=== PATIENT | male | born 1985 | race African-American/Black ===

== ENCOUNTER 2021-07-11 20:54 | Emergency (ER) | payer SELFPAY ==
[~2021-07-11] VITALS: Ht 154.9 cm; Wt 80.0 kg
--- NOTE | 2021-07-11 21:32 | PHYS DOC ---
Past Medical History Past Surgical History: No Surgical History Smoking Status: Current Some Day Smoker Alcohol Use: Occasionally General Adult EDM: Chief Complaint: COUGH HPI: HPI: Patient is a 36 year old male with no significant medical history who presents the ED today to be evaluated for cough, nasal congestion and nosebleeding. Patient is Faroese-speaking and interpretation is provided by the girlfriend. Girlfriend states 3 days ago they broke up. Patient started drinking, smoking and being outside in the cold for long hours. He coughed yesterday and had a nosebleeding episode that lasted less than 2 minutes, no nosebleeding today. Girlfriend states patient has history of nosebleeds when he coughs hard or sneezes. Review of Systems: Review of Systems: Constitutional: Denies fever or chills. [] Eyes: Denies change in visual acuity. [] HENT: Reports nosebleed, nasal congestion denies sore throat. [] Respiratory: Reports cough, denies shortness of breath. [] Cardiovascular: Denies chest pain or edema. [] GI: Denies abdominal pain, nausea, vomiting, bloody stools or diarrhea. [] : Denies dysuria. [] Musculoskeletal: Denies back pain or joint pain. [] Integument: Denies rash. [] Neurologic: Denies headache, focal weakness or sensory changes. [] Psychiatric: Denies depression or anxiety. [] Heart Score: C/O Chest Pain: N/A Risk Factors: Risk Factors: DM, Current or recent (<one month) smoker, HTN, HLP, family history of CAD, obesity. Risk Scores: Score 0 - 3: 2.5% MACE over next 6 weeks - Discharge Home Score 4 - 6: 20.3% MACE over next 6 weeks - Admit for Clinical Observation Score 7 - 10: 72.7% MACE over next 6 weeks - Early Invasive Strategies Allergies: Allergies: Allergies Coded Allergies Type Severity Reaction Last Updated Verified No Known Drug Allergies 07/11/21 No Physical Exam: PE: Constitutional: Well developed, well nourished, no acute distress, non-toxic appearance. [] HENT: Normocephalic, atraumatic, bilateral external ears normal, oropharynx moist, no oral exudates, no nosebleeding noted. Eyes: PERRLA, EOMI, conjunctiva normal, no discharge. [] Neck: Normal range of motion, no tenderness, supple, no stridor. [] Cardiovascular:Heart rate regular rhythm, no murmur [] Lungs & Thorax: Bilateral breath sounds clear to auscultation [] Abdomen: Bowel sounds normal, soft, no tenderness, no masses, no pulsatile masses. [] Skin: Warm, dry, no erythema, no rash. [] Back: No tenderness, no CVA tenderness. [] Extremities: No tenderness, no cyanosis, no clubbing, ROM intact, no edema. [] Neurologic: Alert and oriented X 3, normal motor function, normal sensory function, no focal deficits noted. [] Psychologic: Affect normal, judgement normal, mood normal. [] Current Patient Data: Vital Signs: Vital Signs Date Time Temp Pulse Resp B/P (MAP) Pulse Ox O2 Delivery O2 Flow Rate FiO2 07/11/21 21:21 98.3 75 16 117/68 (84) 99 Room Air 98.3 EKG: EKG: [] Radiology/Procedures: Radiology/Procedures: [] Course & Med Decision Making: Course & Med Decision Making Pertinent Labs and Imaging studies reviewed. (See chart for details) This is a 36-year-old male patient presenting to the ED today complaining of cough, nasal congestion, and nose bleeding. Symptoms began 3 days ago. Patient has no nosebleeding in the ED. Patient has completely normal vitals including O2 sats of 99% on room air. Chest x-ray interpreted by radiologist is negative for any acute findings. Negative rapid Covid test. He was discharged home. He was instructed to follow-up with his own PCP. We discussed methods of stopping nosebleeds. Recommended Neosporin in the nasal cavities twice a day for 7 days. Advised this patient to consider smoking cessation and consider getting help for alcohol use if he feels he needs help. Dragon Disclaimer: [employer] Disclaimer: This electronic medical record was generated, in whole or in part, using a voice recognition dictation system. Departure Departure Impression: Primary Impression: Cough Additional Impressions: URI (upper respiratory infection) Qualified Codes: J06.9 - Acute upper respiratory infection, unspecified Epistaxis Smoking addiction Disposition: HOME / SELF CARE / HOMELESS Condition: STABLE Patient Instructions: Cough, Adult, [id number], Nosebleed, Smoking Cessation, Tips For Success, Upper Respiratory Infection, Child Additional Instructions: You were evaluated in the emergency room, your chest x-ray is negative for any acute findings, your rapid Covid test is negative. You likely have an upper respiratory viral infection. Consider smoking cessation, you can apply Neosporin to your nose twice a day for 7 days. Please follow-up with your doctor in 1 week. Consider getting help for alcohol use if you feel this is a problem. [employer] is available for this Scripts Benzonatate (BENZONATATE) 100 Mg Capsule 1 CAP PO TID, #30 CAP Prov: KEL GUILLEN APRN 07/11/21 KEL GUILLEN APRN Jul 11, 2021 21:32
--- NOTE | 2021-07-11 23:20 | RAD ---
Study: XR CHEST 1V Indication: Cough. Comparison: None. Findings: Incomplete inspiratory excursion with resultant mild bronchovascular crowding. The cardiomediastinal silhouette and luis are within normal limits. No confluent infiltrate, pleural effusion or pneumothor ax. Impression: No acute radiographic abnormality of the chest. Electronically signed by: JACK CLEMENS MD (07/11/2021 11:18 PM) [facility]
[2021-07-11] MEDS ORDERED: BENZ-8 PO (23:52)
[2021-07-12 00:09] VITALS: BP 108/66
== END 2021-07-12 00:13 | disposition home or self-care (01) ==
LOC: ER 20:54
DX: J06.9 Acute upper respiratory infection, unspecified (principal); R04.0 Epistaxis; Z20.822 Contact with and (suspected) exposure to COVID-19; F17.200 Nicotine dependence, unspecified, uncomplicated
CPT/HCPCS: 71045; 87426; 99284; U0003; U0005